=== PATIENT | female | born 1985 | race American Indian/Alaskan Native ===

== ENCOUNTER 2019-09-19 09:45 | Emergency (ER) | payer BC, MEDICAID ==
[2019-09-19 09:53] VITALS: BP 127/76
[2019-09-19] MEDS ORDERED: IBUPROFEN 800 MG TAB PO ONE (10:49)
--- NOTE | 2019-09-19 11:35 | Vascular Lab Report ---
DUPLEX DOPPLER LOWER EXTREMITY VEINS, BILATERAL INDICATION: pain swelling, non traumatic. TECHNIQUE: Duplex doppler imaging was performed through the veins of both lower extremities using venous aram hortensia and other maneuvers. COMPARISON: None available. FINDINGS: Right Common femoral vein: Negative. Right Superficial femoral vein: Negative. Right Popliteal vein: Negative. Right Calf veins: Negative. Left Common femoral vein: Negative. Left Superficial femoral vein: Negative. Left Popliteal vein: Negative. Left Calf veins: Negative. Additional findings: None. IMPRESSION: Negative for DVT. Signer Name: Waldo Jimenez MD Signed: 09/19/2019 11:31 AM Workstation Name: [id number]
--- NOTE | 2019-09-19 12:22 | Emergency Department Report ---
ED Extremity Problem HPI - General Chief complaint: Extremity Problem,Nontraumatic Stated complaint: SHARP PAIN IN (L) LEG Time Seen by Provider: 09/19/19 10:49 Source: patient Mode of arrival: Ambulatory Limitations: No Limitations - History of Present Illness Initial comments: Patient is a 33-year-old Female who is presenting with left lower extremity pain. Patient states pain is been present for approximately a week. She states it's most concentrated in her left anterior and posterior knee however pain is in the thigh and hip and there is radiation into her calf as well. Patient states she has no some very mild swelling. Patient denies any history of back pain. Patient denies trauma. Patient is morbidly obese however she has lost a considerable amount of weight after gastric bypass surgery. Patient states today she fell because her knee her left lower extruding buckled. Patient fell on her right side. Patient is not having any pain on the right leg after the fall. Patient denies chest pain shortness of breath fevers or chills at this time. Severity scale (0 -10): 7 - Related Data Previous Rx's Medication Instructions Recorded Last Taken Type Ibuprofen [Motrin] 800 mg PO Q8HR PRN #15 tablet 09/22/15 Unknown Rx Ibuprofen [Motrin 800 MG tab] 800 mg PO Q8HR PRN #10 tablet 09/19/19 Unknown Rx traMADoL [Ultram] 50 mg PO Q6HR PRN #12 tablet 09/19/19 Unknown Rx Allergies Allergy/AdvReac Type Severity Reaction Status Date / Time No Known Allergies Allergy Verified 05/27/14 09:48 ED Review of Systems ROS: Stated complaint: SHARP PAIN IN (L) LEG Other details as noted in HPI Comment: All other systems reviewed and negative ED Past Medical Hx - Past Medical History Previous Medical History?: No Additional medical history: ectopic preg - Surgical History Past Surgical History?: Yes Additional Surgical History: c sect, lap band - Social History Smoking Status: Never Smoker - Medications Home Medications: Home Medications Medication Instructions Recorded Confirmed Last Taken Type Ibuprofen [Motrin] 800 mg PO Q8HR PRN #15 tablet 09/22/15 Unknown Rx Ibuprofen [Motrin 800 MG tab] 800 mg PO Q8HR PRN #10 tablet 09/19/19 Unknown Rx traMADoL [Ultram] 50 mg PO Q6HR PRN #12 tablet 12/18/19 Unknown Rx ED Physical Exam - General Limitations: No Limitations General appearance: alert, in no apparent distress - Head Head exam: Present: atraumatic, normocephalic - Eye Eye exam: Present: normal appearance, PERRL, EOMI - ENT ENT exam: Present: mucous membranes moist - Neck Neck exam: Present: normal inspection - Respiratory Respiratory exam: Present: normal lung sounds bilaterally. Absent: respiratory distress, wheezes, rales, rhonchi - Cardiovascular Cardiovascular Exam: Present: regular rate, normal rhythm. Absent: systolic murmur, diastolic murmur, rubs, gallop - GI/Abdominal GI/Abdominal exam: Present: soft, normal bowel sounds. Absent: distended, tenderness, guarding, rebound - Extremities Exam Extremities exam: Present: normal inspection - Expanded Lower Extremity Exam Left Hip exam: Present: normal inspection, full ROM Upper Leg exam: Present: normal inspection Knee exam: Present: tenderness. Absent: full ROM, swelling, abrasion Lower Leg exam: Present: Sergey's sign Ankle exam: Present: normal inspection - Back Exam Back exam: Present: normal inspection. Absent: tenderness - Neurological Exam Neurological exam: Present: alert, oriented X3 - Psychiatric Psychiatric exam: Present: normal affect, normal mood - Skin Skin exam: Present: warm, dry, intact, normal color. Absent: rash ED Course Vital Signs 09/19/19 09:51 Temperature 97.4 F L Pulse Rate 85 Respiratory 18 Rate Blood Pressure 127/76 [Left] O2 Sat by Pulse 99 Oximetry ED Medical Decision Making - Radiology Data DUPLEX DOPPLER LOWER EXTREMITY VEINS, BILATERAL INDICATION: pain swelling, non traumatic. TECHNIQUE: Duplex doppler imaging was performed through the veins of both lower extremities using venous compression and other maneuvers. COMPARISON: None available. FINDINGS: Right Common femoral vein: Negative. Right Superficial femoral vein: Negative. Right Popliteal vein: Negative. Right Calf veins: Negative. Left Common femoral vein: Negative. Left Superficial femoral vein: Negative. Left Popliteal vein: Negative. Left Calf veins: Negative. Additional findings: None. IMPRESSION: Negative for DVT. Signer Name: Waldo Jimenez MD Signed: 09/19/2019 11:31 AM Workstation Name: [id number] - Medical Decision Making Patient is a 33-year-old female presenting with left lower extremity pain. DVT was high on the patient's differential because the patient's calf tenderness. Ultrasound was now which showed no DVT at this time. Patient also is morbidly obese likely does have some arthritis in the left knee. Patient will be William wrapped and DC'd home with follow-up with orthopedics as needed Critical care attestation.: If time is entered above; I have spent that time in minutes in the direct care of this critically ill patient, excluding procedure time. ED Disposition Clinical Impression: Knee arthropathy, Fall Disposition: DC- TO HOME OR SELFCARE Is pt being admited?: No Does the pt Need Aspirin: No Condition: Stable Instructions: Musculoskeletal Pain (ED) Referrals: GEORGINA THOMPSON MD [Staff Physician] - 3-5 Days Forms: Work/School Release Form(ED) Time of Disposition: 12:24
== END 2019-09-19 12:34 | disposition home or self-care (01) ==
LOC: ED 09:45
DX: M17.10 Unilateral primary osteoarthritis, unspecified knee (principal); Z98.890 Other specified postprocedural states; W19.XXXA Unspecified fall, initial encounter; Y93.89 Activity, other specified; Y92.410 Unspecified street and highway as the place of occurrence of the external cause; Y99.8 Other external cause status